=== PATIENT | female | born 1975 | race Caucasian/White ===

== ENCOUNTER 2018-04-06 10:07 | Emergency (ER) | payer OTHER ==
[2018-04-06 10:23] VITALS: BP 123/68; PULSE 71; TEMP 98.4; BMI 30.4
--- NOTE | 2018-04-06 10:37 | PDOC ---
Attending Attestation - Resident Resident Name: [email or web address] - ED Attending Attestation I have performed the following: I have examined & evaluated the patient, The case was reviewed & discussed with the resident, I agree w/resident's findings & plan, Exceptions are as noted - HPI HPI: 04/06/18 11:04 The patient is a 42 year old female, with a significant past medical history of , who presents to the emergency department with, chest pain. She describes her chest pain as intermittent and radiating from her mid-chest to her lower abdomen and back lasting 20 minutes approximately an hour and half prior to her arrival. She reports associated diaphoresis, shortness of breath, and lightheadedness. Her symptoms began while she was at work sitting at her desk. She reports 2 similar episodes over the past month which awoke her from her sleep. While in the ED, she reports being asymptomatic. Her last menses was a week ago. She denies recent fevers, chills, headache or dizziness. She denies recent nausea, vomit, diarrhea or constipation. She denies recent dysuria, frequency, urgency or hematuria. Allergies: NKA Past surgical history: Spinal surgeries. Social history: Former smoker (Quit 1 week ago, uses E-cigarettes). Denies EtOH use and recreational drug use. - Physicial Exam PE: 04/06/18 11:18 GENERAL: Awake, alert, and fully oriented, in no acute distress HEAD: No signs of trauma EYES: PERRLA, EOMI, sclera anicteric, conjunctiva clear ENT: Auricles normal inspection, hearing grossly normal, nares patent, oropharynx clear without exudates. Moist mucosa NECK: Normal ROM, supple, no lymphadenopathy, JVD, or masses LUNGS: Breath sounds equal, clear to auscultation bilaterally. No wheezes, and no crackles HEART: Regular rate and rhythm, normal S1 and S2, no murmurs, rubs or gallops ABDOMEN: Soft, nontender, normoactive bowel sounds. No guarding, no rebound. No masses EXTREMITIES: Normal range of motion, no edema. No clubbing or cyanosis. No cords, erythema, or tenderness NEUROLOGICAL: Cranial nerves II through XII grossly intact. Normal speech, normal gait SKIN: Warm, Dry, normal turgor, no rashes or lesions noted. <Michelle Montague - Last Filed: 04/06/18 11:04> - Medical Decision Making 04/06/18 11:47 Pt presents to the Ed complaining of a transient episode of chest and diffuse abdominal pain that has now spontaneously resolved. Now is symptom free. Patient is able to exert herself with no symptoms in between episodes.check Differential includes panic attack, less likely renal stone, less likely ACS. Will check labs and EKG and reassess. <Courtney Beasley - Last Filed: 04/06/18 12:09> Attestations - Attestations 04/06/18 11:04 Documentation prepared by Michelle Montague, acting as medical payment poster for Courtney Beasley MD. <Michelle Montague - Last Filed: 04/06/18 11:04>
--- NOTE | 2018-04-06 11:08 | PDOC ---
History of Present Illness - General Chief Complaint: Chest Pain Stated Complaint: CHEST PAIN Time Seen by Provider: 04/06/18 10:36 - History of Present Illness Initial Comments: 04/06/18 11:02 42 year old w/ history of pre-diabetes who presents after 20 min episode of chest pain that travelled to her abdomnen and into her upper back and was associated with sweating and SOB. She denies nausea, vomiting, diarrhea, constipation, fever or dizziness. She states this is the third time that this has happened. The first two times she felt a similar pain that awoke her from sleep. She notes that she does experience these symptoms during exertion and all episodes have occurred while she was sitting or lying don. She has no other complaints at bedside. PMHX: prediabetes PSHX: spinal surgery Meds: metformin, spironolactone, saxenda Allergies: none Tob: 1ppd quit 1 week ago, now only uses vape Etoh: occasionally Rec Drugs: none Past History - Past Medical History Allergies/Adverse Reactions: Allergies Allergy/AdvReac Type Severity Reaction Status Date / Time No Known Allergies Allergy Verified 04/06/18 10:19 COPD: No Diabetes: Yes - Suicide/Smoking/Psychosocial Hx Smoking History: Former smoker Have you smoked in the past 12 months: No Information on smoking cessation initiated: No Hx Alcohol Use: No Drug/Substance Use Hx: No Review of Systems - Review of Systems Able to Perform ROS?: Yes Is the patient limited Kyrgyz proficient: No Constitutional: Yes: Diaphoresis. No: Chills, Fever HEENTM: No: Blurred Vision, Tinnitus Respiratory: Yes: Shortness of Breath. No: Cough, Orthopnea Cardiac (ROS): Yes: Chest Pain. No: Palpitations, Chest Tightness ABD/GI: No: Constipated, Diarrhea, Nausea, Vomiting : No: Burning, Dysuria, Hematuria Musculoskeletal: Yes: Back Pain (upper back) Neurological: No: Headache, Numbness, Paresthesia, Tingling Psychiatric: Yes: Stressors (works two jobs) *Physical Exam - Vital Signs Last Vital Signs Temp Pulse Resp BP Pulse Ox 98.4 F 71 17 123/68 98 04/06/18 10:19 04/06/18 10:19 04/06/18 10:19 04/06/18 10:19 04/06/18 10:19 - Physical Exam Comments: 04/06/18 11:09 GENERAL: Awake, alert, and fully oriented, in no acute distress HEAD: No signs of trauma, normocephalic, atraumatic EYES: EOMI, sclera anicteric, conjunctiva clear ENT: oropharynx clear without exudates. dry mucosa NECK: Normal ROM, supple, no lymphadenopathy or masses LUNGS: No distress, speaks full sentences, clear to auscultation bilaterally HEART: Regular rate and rhythm, normal S1 and S2, no murmurs, rubs or gallops, peripheral pulses normal and equal bilaterally. ABDOMEN: Soft, + slight tenderness to RLQ and LLQ, normoactive bowel sounds. No guarding, no rebound. No masses EXTREMITIES : Normal inspection, Normal range of motion, no edema. No clubbing or cyanosis. NEUROLOGICAL: Normal speech, normal gait, no focal sensorimotor deficits SKIN: Warm, Dry, normal turgor, no rashes or lesions noted ED Treatment Course - LABORATORY CBC & Chemistry Diagram: 04/06/18 12:04 04/06/18 12:04 - RADIOLOGY Radiology Studies Ordered: Category Date Time Status CHEST X-RAY PORTABLE* [RAD] Stat Radiology 04/06/18 10:52 Ordered Medical Decision Making - Medical Decision Making 04/06/18 11:10 42 year old w/ history of pre-diabetes who presents after 20 min episode of chest pain that travelled to her abdomnen and into her upper back and was associated with sweating and SOB. Possible etiologies for the patient's symptoms are panic attack vs unstable angina vs nephrolithiasis vs PID vs ectopic vs ovarian torsion. Patient's presentation is atypical for any of these etiologies as the pain has awoken her from sleep, making panic attack less likely and not associated with exertion which is would make stable angina less likely but cannot exclude unstable angina. 04/06/18 12:47 Patient's labs, including troponins, and imaging were found unremarkable. Patient does exhibit am immediate need for hospitalization. Patient stable for discharge with follow up instructions and strict return precautions. *DC/Admit/Observation/Transfer Diagnosis at time of Disposition: Chest pain - Discharge Dispostion Disposition: HOME Condition at time of disposition: Stable Decision to Admit order: No - Referrals Referrals: [facility] [place] [Provider Group] - Patient Instructions Printed Discharge Instructions: DI for Atypical Chest Pain Additional Instructions: You were seen in the ED for complaint of chest pain. In the ED you were evaluated with labwork, imaging and EKG. Your results were unremarkable and did not show a need for immediate hospitalization. You are given a referral for cardiology and advised to follow up with this referral and your primary care physician within 1 week. Please return to the ED if your pain worsens, you feel lightheaded, have shortness of breath, chest pain, nausea, vomiting, fevers. - Post Discharge Activity
[2018-04-06 12:13] LABS: CHLORIDE 109 mmol/L (98-107); POTASSIUM 4.3 mmol/L (3.5-5.1); SODIUM 141 mmol/L (136-145)
[2018-04-06 12:13] LABS: BASO % 0.6 % (0-2.0); EOS % 1.1 % (0-4.5); HEMATOCRIT 39.8 % (32.4-45.2); HEMOGLOBIN 13.7 GM/dL (10.7-15.3); LYMPH % 23.7 % (8-40); MCH 30.1 pg (25.7-33.7); MCHC 34.4 g/dl (32.0-36.0); MEAN CELL VOLUME 87.5 fl (80-96); MEAN PLT VOLUME 7.9 fl (7.5-11.1); MONO % 5.5 % (3.8-10.2); NEUT % 69.1 % (42.8-82.8); PLATELET COUNT 378 K/MM3 (134-434); RBC 4.55 M/mm3 (3.60-5.2); WHITE BLOOD COUNT 11.4 K/mm3 (4.0-10.0)
[2018-04-06 12:16] LABS: URINE APPEARANCE SLCLOUDY; URINE BILIRUBIN NEGATIVE (<2.0 mg/dL); URINE COLOR STRAW; URINE GLUCOSE (UA) NEGATIVE (NEGATIVE); URINE KETONE NEGATIVE (NEGATIVE); URINE LEUK ESTERASE NEGATIVE (NEGATIVE); URINE NITRITE NEGATIVE (NEGATIVE); URINE PROTEIN NEGATIVE (NEGATIVE); URINE UROBILINOGEN NEGATIVE mg/dL (0.2-1.0)
[2018-04-06 12:19] LABS: ALBUMIN 3.9 g/dl (3.4-5.0); ANION GAP 8 (8-16); BLOOD UREA NITROGEN 8 mg/dL (7-18); CALCIUM 9.3 mg/dL (8.5-10.1); CO2 24 mmol/L (21-32); GLUCOSE,RANDOM 83 mg/dL (74-106)
[2018-04-06 12:22] LABS: ALK PHOS 96 U/L (45-117); BILIRUBIN,TOTAL 0.2 mg/dL (0.2-1.0); CREATININE 0.6 mg/dL (0.55-1.02); SGOT/AST 22 U/L (15-37); SGPT/ALT 33 U/L (12-78); TOT PROT 7.1 g/dl (6.4-8.2)
--- NOTE | 2018-04-06 16:04 | EKG ---
Test Reason : Blood Pressure : / mmHG Vent. Rate : 068 BPM Atrial Rate : 068 BPM P-R Int : 134 ms QRS Dur : 076 ms QT Int : 382 ms P-R-T Axes : 054 043 045 degrees QTc Int : 406 ms NORMAL SINUS RHYTHM LOW VOLTAGE QRS BORDERLINE ECG NO PREVIOUS ECGS AVAILABLE Confirmed by KHANH QUINONES MD ([id number]) on 04/06/2018 4:04:16 PM Referred By: Confirmed By:KHANH QUINONES MD
== END 2018-04-06 13:16 | disposition home or self-care (01) ==
LOC: JER 10:07
DX: R07.9 Chest pain, unspecified (principal); R73.03 Prediabetes
CPT/HCPCS: 36415; 71045-TC-FY; 80053; 81003; 82550; 84484; 84703; 85025; 87086; 93005; 93010; 99284-25